=== PATIENT | female | born 1985 | race Caucasian/White ===

== ENCOUNTER 2022-11-19 12:44 | Outpatient (CLI) | payer OTHER, SELFPAY ==
[2022-11-19 23:04] LABS: Chlamydia DNA Amplified* NOT DETECTED (No Detected); GC DNA Amplified* NOT DETECTED (No Detected)
== END 2022-11-19 12:45 | disposition home or self-care (01) ==
LOC: LKVREF 12:44
PROVIDERS: PCP Family Medicine; Visit Provider Nurse Practitioner Family
DX: R30.0 Dysuria (principal)
CPT/HCPCS: 87491; 87591

== ENCOUNTER 2023-02-26 08:22 | Outpatient (CLI) | payer OTHER, SELFPAY ==
[2023-02-26 15:20] LABS: Chlamydia DNA Amplified* NOT DETECTED (No Detected); GC DNA Amplified* NOT DETECTED (No Detected)
== END 2023-02-26 08:23 | disposition home or self-care (01) ==
LOC: FRMREF 08:22
PROVIDERS: PCP Family Medicine; Visit Provider Family Medicine
DX: N92.0 Excessive and frequent menstruation with regular cycle (principal)
CPT/HCPCS: 87491; 87591

== ENCOUNTER 2023-03-20 13:25 | Outpatient (CLI) | payer OTHER, SELFPAY ==
[2023-03-21 11:52] LABS: Chlamydia DNA Amplified* NOT DETECTED (No Detected); GC DNA Amplified* NOT DETECTED (No Detected)
== END 2023-03-20 13:26 | disposition home or self-care (01) ==
LOC: LKVREF 13:27
PROVIDERS: PCP Family Medicine; Visit Provider Nurse Practitioner Family
DX: R30.0 Dysuria (principal); Z11.3 Encounter for screening for infections with a predominantly sexual mode of transmission
CPT/HCPCS: 87086; 87491; 87591

== ENCOUNTER 2023-06-14 09:01 | Outpatient (CLI) | payer OTHER, SELFPAY | END 2023-06-14 09:02 | disposition home or self-care (01) | LOC: NFLDREF 06-15 06:32 | PROVIDERS: PCP Family Medicine; Referring Provider Family Medicine; Visit Provider Family Medicine | DX: N92.1 Excessive and frequent menstruation with irregular cycle (principal); Z13.220 Encounter for screening for lipoid disorders; Z13.29 Encounter for screening for other suspected endocrine disorder; Z13.1 Encounter for screening for diabetes mellitus | CPT/HCPCS: 80061; 82947; 84443 ==

== ENCOUNTER 2023-06-25 15:43 | Outpatient (CLI) | payer OTHER, SELFPAY ==
--- NOTE | 2023-06-25 16:00 | US_ITS ---
Patient: NIGEL BEAULIEU Facility:?[facility] RIS Patient ID:?[id number] Site Patient ID:?[id number]. Site :?[id number] Study:?US-OB Pelvis TA/TV Pelvic US-06/25/2023 4:51:50 PM Ordering Physician:Regina May Final Report: INDICATION: Menorrhagia COMPARISON: 06/06/2020 TECHNIQUE: 2D ibrahim scale and color Doppler images were acquired of the pelvis using a transabdominal and transvaginal approach. FINDINGS: Sonographic images demonstrate a normal size and smooth outer contour of the uterus. Uterus measures 8.9 cm in length by 4.5 cm in AP diameter by 5.8 cm in transverse dimension. The myometrium has a normal uniform echotexture. The endometrial lining measures 8.8 mm in composite thickness. Cervical nabothian cysts measures 8 millimeters. The right ovary measures 3.8 x 1.6 x 2.5 cm in size and the left ovary measures 3.7 x 2.7 x 1.7 cm. The ovaries demonstrate normal arterial and venous blood flow on color Doppler analysis. Moderate pelvic free fluid. Hemorrhagic left ovarian cyst measures 16 x 16 x 17 millimeters. Incidental calcification within the right ovary measuring 3 millimeters. Simple right ovarian cyst measures 19 x 10 x 12 millimeters. IMPRESSION: Endometrial thickness 8.8 millimeters. No uterine fibroid. No endometrial fluid. Dictated by Landon Cote MD @ 06/26/2023 10:51:20 AM Signed by:?Landon Cote MD @06/26/2023 10:51:20 AM (Electronic Signature)
== END 2023-06-25 15:44 | disposition home or self-care (01) ==
LOC: US 15:43
PROVIDERS: PCP Family Medicine; Visit Provider Physician Assistant
DX: N92.1 Excessive and frequent menstruation with irregular cycle (principal); R93.89 Abnormal findings on diagnostic imaging of other specified body structures; N92.3 Ovulation bleeding
CPT/HCPCS: 76830; 76856

== ENCOUNTER 2023-07-10 17:15 | Outpatient (CLI) | payer OTHER, SELFPAY | END 2023-07-10 17:16 | disposition home or self-care (01) | LOC: NFLDREF 07-30 06:02 | PROVIDERS: PCP Family Medicine; Referring Provider Family Medicine; Visit Provider Physician Assistant | DX: D50.9 Iron deficiency anemia, unspecified (principal) | CPT/HCPCS: 82728 ==

== ENCOUNTER 2023-07-22 08:19 | Outpatient (RCR) | payer OTHER, SELFPAY ==
--- NOTE | 2023-07-14 13:27 | PC.NURSE ---
Diagnosis: IRON DEFICIENCY ANEMIA
--- NOTE | 2023-07-14 13:43 | URNOTE ---
?Request received for authorization for?Infed ([id number]). Prior authorization is not required per [facility] Ref#[id number].
[2023-07-22 08:29] VITALS: BP 108/72; PULSE 75; RESP 18; TEMP 36.4; O2SAT 99
[2023-07-22] MEDS: IRON DEXTRAN COMPLEX 25 MG in 0.9 % SODIUM CHLORIDE 100 ml 100 ML 402 MG IVPB (09:05)
[2023-07-22 09:55] VITALS: BP 108/72; PULSE 91; RESP 18; TEMP 36.8; O2SAT 100
[2023-07-22] MEDS: 0.9 % SODIUM CHLORIDE 250 ml IV (10:20)
[2023-07-22] MEDS: SODIUM CHLORIDE 0.9 % (FLUSH) 10 ML SYRINGE IVF (10:20)
[2023-07-22] MEDS: IRON DEXTRAN COMPLEX 975 MG in 0.9 % SODIUM CHLORIDE 250 ml 250 ML 269.5 MG IVPB (10:20)
[2023-07-22 11:34] VITALS: BP 118/73; PULSE 91; RESP 18; O2SAT 100
== END 2024-01-18 23:59 | disposition home or self-care (01) ==
LOC: CCIC 08:19
PROVIDERS: PCP Family Medicine; Referring Provider Family Medicine; Visit Provider Physician Assistant
DX: D50.9 Iron deficiency anemia, unspecified (principal)
CPT/HCPCS: 96365; 96376; J1750; J7050

== ENCOUNTER 2023-09-08 06:02 | Day surgery (SDC) | payer OTHER, SELFPAY ==
[2023-09-08] VITALS (20 sets, daily range): BP systolic 84–115; BP diastolic 46–84; PULSE 44–88; RESP 14–16; TEMP 35.9–37.8; O2SAT 96–100; BMI 25.7
[2023-09-08] MEDS: PHENAZOPYRIDINE HCL 200 MG TABLET PO (06:45)
[2023-09-08 06:46] LABS: Ur HCG Qualitative* Negative (Negative)
[2023-09-08] MEDS: LACTATED RINGERS 1000 ML 1,000 ML 100 ML IV ×2 (07:03→08:08)
[2023-09-08] MEDS: SODIUM CHLORIDE 0.9 % (FLUSH) 10 ML SYRINGE IVF ×2 (07:03→21:14)
--- NOTE | 2023-09-08 07:27 | W.PM.H&PU ---
History & Physical Update History & Physical Update H&P Reviewed and patient assessed: The following changes are noted below H&P Updates: She reports having been diagnosed with bacterial vaginosis in the last week. However, she reports less than 20% clue cells on wet prep. She was prescribed metronidazole but did not take this. It sounds as though she does not meet definitive criteria for BV given the wet prep result, but I suspect she does have increased risk of infection given this, and we discussed this risk. I will treat her with IV metronidazole pre / perioperatively, and will recommend that she complete 7 days of oral metronidaole afterwards.
[2023-09-08 07:28] LABS: Hemoglobin* 11.7 gm/dL (12.0-16.0)
[2023-09-08] MEDS: CEFAZOLIN 2 GM INJ IVP (07:30)
[2023-09-08 07:41] LABS: Creatinine* 0.7 mg/dL (0.5-1.5); Est. Creatinine Clearance* 93.17; Estimated Glomerular Filt Rate 113 ml/min
[2023-09-08] MEDS: metroNIDAZOLE 500 MG/100 ML PIGGYBACK 100 MG IVPB (07:45)
[2023-09-08] MEDS: 0.9 % SODIUM CHLORIDE 50 ml INJECTION (08:05)
[2023-09-08] MEDS: VASOPRESSIN 20 UNIT/ML INJ INJECTION (08:05)
--- NOTE | 2023-09-08 09:06 | PM.PROC ---
Procedure Note Time Seen by Provider: 09:06 Date Seen: 09/08/23 Date of procedure: 09/08/23 Will [facility] bill your pro fee for this procedure?: Yes Procedure: therapy administrative assistant op note: Preoperative diagnosis: 38-year-old with menorrhagia with secondary anemia Postoperative diagnosis: Same Procedure: Total vaginal hysterectomy, bilateral salpingectomy, cystoscopy Operative note: I was asked to assist Dr. Valdez with the patient's surgery. I aided in dissection, visualization, and obtaining hemostasis. Please see Dr. Valdez's note for complete details.
--- NOTE | 2023-09-08 09:09 | W.PM.GYNPROC ---
Procedure Note Date of procedure: 09/08/23 Will [facility] bill your pro fee for this procedure?: Yes Pre-op diagnosis: Menorrhagia Iron deficiency anemia Post-op diagnosis: Same Procedure: Total vaginal hysterectomy Bilateral salpingectomy Cystoscopy Anesthesia: MAC and spinal Complications: None Surgeon: Shanti Valdez MD Wool Dyer: Ann Washington Estimated blood loss (mL): 25 IV fluids (mL): 1,700 Urine Output (mL): 50 Pathology: specimen obtained, sent to pathology (Uterus with bilateral fallopian tubes) Condition: stable Disposition: PACU Findings: 1. Exam under anesthesia revealed mobile, slightly retroverted uterus without any palpable adnexal masses. 2. Visualized portions of bilateral ovaries were normal. Tubes were normal in appearance. Weight of uterus and tubes was 158 g. 3. Upon cystoscopy performed at end of procedure, there were bilateral ureteral jets noted and there was no injury to the bladder mucosa or bladder dome. Procedure Description: Procedure in detail: Patient was taken to the operating room with IV running. Spinal anesthesia was administered. She received cefazolin and metronidazole in preoperative prophylaxis. She was positioned in dorsal lithotomy position with her legs in Yellofin stirrups. Exam under anesthesia was performed for the above noted findings. Santana catheter was inserted. Weighted speculum was inserted. Cervix was grasped along its anterior and posterior lips with thyroid Alex clamps. The cervical vaginal junction was circumferentially infiltrated with dilute vasopressin. The cervical vaginal junction was then incised circumferentially with scalpel. The vaginal epithelium was dissected bluntly off bilateral uterosacral ligaments. Anterior colpotomy was performed sharply, and a Jack retractor was placed between the bladder and the uterus. The posterior colpotomy was performed sharply, and a long weighted speculum was placed in the cul-de-sac. Bilateral uterosacral ligaments were clamped, cut, suture ligated with 0 Vicryl, and tagged for later identification. The cardinal ligaments were serially clamped, cut, and suture ligated bilaterally with 0 Vicryl. Finally, the remnants of the broad ligament were clamped, cut, and suture-ligated, sparing the fallopian tubes. These were grasped with [place] clamps at their fimbriated edges. The LigaSure exact device was used to cauterize and transect the blood supply the tubes, and the remaining mesosalpinx was cauterized and transected with this device as well. This was carried out 1st on the patient's right, then the left side. The uterus and attached fallopian tubes was delivered through the vagina. Bilateral ovaries were normal in appearance. The angles of the vaginal cuff were closed with a stitch of 0 Vicryl, incorporating the distal most aspect of the uterosacral pedicle into the closure. The intervening vaginal cuff was closed with a series of [id number] sutures of 0 Vicryl. Hemostasis was noted. All instruments were removed from the vagina. Santana catheter was removed from the patient's bladder. Patient was administered IV sodium fluorescein to aid in visualization of ureteral jets. Cystoscopy was performed, revealing bilateral ureteral jets and no injury to the bladder. The cystoscope was removed and the Santana catheter replaced. Postoperative debrief was verbalized with OR staff, including a verification of pathology specimens to be sent as described above. Patient tolerated procedure well and was taken to recovery area in stable condition.
--- NOTE | 2023-09-08 09:24 | W.ANESCHARGE ---
Anesthesia Charges Start Date/Time Anesthesia Start Date: 09/08/23 Anesthesia Start Time: 07:18 Stop Date/Time Anesthesia Stop Date: 09/08/23 Anesthesia Stop Time: 09:12
--- NOTE | 2023-09-08 09:25 | W.ANESCHARGE ---
Anesthesia Charges Start Date/Time Anesthesia Start Date: 09/08/23 Anesthesia Start Time: 07:18 Stop Date/Time Anesthesia Stop Date: 09/08/23 Anesthesia Stop Time: 09:12
[2023-09-08] MEDS: LORazepam 2 MG/ML inj IVP (10:27)
[2023-09-08] MEDS: LACTATED RINGERS 1000 ML 1,000 ML 125 ML IV (10:28)
[2023-09-08] MEDS: KETOROLAC 30 MG/ML inj IVP ×2 (14:52→21:14)
[2023-09-08] MEDS: ACETAMINOPHEN 325 MG TABLET 650 MG PO (18:26)
--- NOTE | 2023-09-08 18:56 | PC.NURSE ---
Pt alert and oriented. Pt had no complaints of pain but some cramping. Pt has a greenfield in place. Pt arrived to floor at 945- Pt was drowsy and slept through most of the morning. Pt had some anxiety post-surgery; see EMAR for intervention. Surgeon updated. Pt up independently in room. Behavioral Health Worker received a verbal order to remove the greenfield catheter from the surgeon production expediter per Pt?s request. Removed at 1845; Pt able to void immediately after removal.?
[2023-09-08] MEDS: OXYCODONE 5 MG TABLET PO (21:13)
[2023-09-08] MEDS: metroNIDAZOLE 500 MG TABLET PO (21:13)
[2023-09-08] MEDS: TRAZODONE HCL 50 MG TABLET 100 MG PO (22:31)
[2023-09-09] MEDS: KETOROLAC 30 MG/ML inj IVP ×2 (02:36→08:45)
[2023-09-09] MEDS: SODIUM CHLORIDE 0.9 % (FLUSH) 10 ML SYRINGE IVF (02:37)
[2023-09-09 02:53] VITALS: BP 106/57; PULSE 69; RESP 16; TEMP 36.7; O2SAT 95
--- NOTE | 2023-09-09 05:27 | PC.NURSE ---
[id number] Pt slept well during night, voiding without difficulty, greenfield removed approx 1900. no N/V, tolerating PO intake, scant bleeding noted during urination, no clots, appropriate amount. pt denies being lightheaded or dizzy. pain controlled with prn and scheduled pain medications, describes pain as cramping. pt appliying heat and ice to lower abd, rotating per pt comfort.
[2023-09-09] MEDS: OXYCODONE 5 MG TABLET PO ×2 (06:35→10:22)
[2023-09-09 06:36] LABS: Creatinine* 0.6 mg/dL (0.5-1.5); Estimated Glomerular Filt Rate 117 ml/min
[2023-09-09 06:39] LABS: Hemoglobin* 10.6 gm/dL (12.0-16.0)
[2023-09-09 07:40] VITALS: BP 94/63; PULSE 62; RESP 14; TEMP 36.9; O2SAT 98
--- NOTE | 2023-09-09 07:59 | P.DS_ITS ---
DS: Providers Provider Date Seen: 09/09/23 Date of admission: 09/08/23 Primary care physician: Khurram Bernard MD Admitting Clinician: Shanti Valdez MD Attending Physician on discharge: Shanti Valdez MD Date of Discharge: 09/09/23 DS: Diagnosis Discharge Diagnosis (1) S/P vaginal hysterectomy: Status: Acute Problem details: total vaginal hysterectomy with bilateral salpingectomy and cystoscopy 09/08/23 MAIL DELIVERER-Discharge Summary Hospital Course Hospital Course Narrative: Patient is a 38 year old admitted on 09/08/2023 for total vaginal hysterectomy with bilateral salpingectomy and cystoscopy. Indication for surgery: Menorrhagia with iron deficiency anemia. Intraoperative findings were notable for uterus of normal dimensions. Normal appearance to bilateral tubes and ovaries. She had an uncomplicated surgery. Postoperative course has been uneventful. Vitals have been stable. She has remained afebrile. Today, on postoperative day 1, she reports the pain is well controlled. She has been able to ambulate Without difficulty. She is tolerating regular diet. She is passing flatus. Santana catheter has been removed, and she is voiding without difficulty. Time Spent with Patient Time attestation: Total time spent providing and/or coordinating discharge services: Time spent: Less than 30 minutes MAIL DELIVERER - Exam Physical Exam: Vital signs: Temp Pulse Resp BP Pulse Ox O2 Del Method 98.5 F 62 14 94/63 98 Room Air 09/09/23 07:40 09/09/23 07:40 09/09/23 07:40 09/09/23 07:40 09/09/23 07:40 09/09/23 07:40 Narrative: General: Pleasant, no acute distress Heart: Regular rate and rhythm, no murmur or gallop Lungs: Clear to auscultation bilaterally Abdomen: Soft, nontender, normoactive bowel sounds, no rebound / guarding / distention Lower extremities: No edema or erythema MAIL DELIVERER - DS: Data Data Completed and Pending Labs on day of discharge: Labs from last 24 hours 09/09/23 09/08/23 05:50 07:11 Hgb 10.6 L Creatinine 0.6 Estimated Creat Clear 108.70 Estimated GFR 117 Blood Type A Positive Antibody Screen NEGATIVE Procedures Procedures: Procedures Operation Date: 09/08/23 07:15 Actual Procedure Side Surgeon p M/S-Total Vaginal Hysterectomy, Bilateral Salpingectomy, Cystoscopy Not Applicable Shanti Valdez MD Complications: none Discharge Plan Discharge Disposition: Home w/ Parent or Adult Discharging Surgeon: Shanti Valdez Follow-Up Appointment: Dr. Valdez, [facility], September 23 @ 1:15 pm Prescriptions: New acetaminophen 325 mg Tablet 650 mg PO Q4H PRN (Reason: minor pain) Qty: 0 0RF metronidazole 500 mg Tablet 500 mg PO BID 6 Days Qty: 12 0RF docusate sodium 100 mg Capsule 100 mg PO BID PRN (Reason: Constipation) Qty: 0 0RF ibuprofen 600 mg Tablet 600 mg PO Q6H Qty: 0 0RF oxycodone 5 mg Tablet 5 mg PO Q4H PRN (Reason: Moderate Pain) Qty: 20 0RF Continued tretinoin 0.05 % cream 1 applic topical HS PRN trazodone 100 mg tablet 100 mg PO QHS PRN (Reason: sleep) Qty: 90 3RF dextroamphetamine-amphetamine 10 mg tablet 1 tab PO BID PRN venlafaxine 75 mg capsule,extended release 24hr 75 mg PO DAILY metronidazole 0.75 % (37.5mg/5 gram) gel 1 appful vaginal 2XW Rx Instructions: To start after completion of oral metronidazole. 1 appful vaginally twice weekly for 4 months Activity Level: Activity as Tolerated Discharge Diet: Regular Patient Instructions: Vaginal Hysterectomy (DC) Follow-up: Khurram Bernard MD [Primary Care Provider] - Shanti Valdez MD [Staff Physician] - 09/24/23 1:15 pm Discharge Orders: Discharge Order (Routine); Ordered 09/09/23 Ordered By: Shanti Valdez
[2023-09-09] MEDS: metroNIDAZOLE 500 MG TABLET PO (08:45)
[2023-09-09 10:00] VITALS: BP 105/69; PULSE 66; RESP 16; TEMP 37.3; O2SAT 100
--- NOTE | 2023-09-09 12:07 | PC.NURSE ---
Pt alert and oriented. Pt had complaints of pain ranging 4-6; see EMAR for intervention. Pt up independently in room. Pt has scan bloody drainage from vagina. Pt's IV removed catheter intact.
== END 2023-09-09 11:01 | disposition home or self-care (01) ==
LOC: OR 06:05 → MEDSURG 06:19
PROVIDERS: PCP Family Medicine; Visit Provider Obstetrics & Gynecology
PROC: (CPT 58262; principal; 2023-09-08 07:15)
DX: N92.0 Excessive and frequent menstruation with regular cycle (principal); D50.0 Iron deficiency anemia secondary to blood loss (chronic); N76.0 Acute vaginitis
CPT/HCPCS: 58262; 00944; 36415; 81025; 82565; 85018; 86850; 86900; 86901; 88309; A9270; J0690; J1100; J1630; J1836; J1885; J2060; J2250; J2274; J2405; J2704; J3010; J3490; J7120

== ENCOUNTER 2023-10-22 09:15 | Outpatient (CLI) | payer OTHER, SELFPAY | END 2023-10-22 09:16 | disposition home or self-care (01) | LOC: NFLDREF 09:17 | PROVIDERS: PCP Family Medicine; Visit Provider Obstetrics & Gynecology | DX: A60.00 Herpesviral infection of urogenital system, unspecified (principal) | CPT/HCPCS: 86694; 86695; 86696 ==

== ENCOUNTER 2024-06-20 13:40 | Outpatient (CLI) | payer OTHER, SELFPAY | END 2024-06-20 13:41 | disposition home or self-care (01) | PROVIDERS: PCP Physician Assistant Medical; Visit Provider Physician Assistant Medical | DX: R00.2 Palpitations (principal); R23.2 Flushing | CPT/HCPCS: 80053; 80061; 83001; 84443 ==

== ENCOUNTER 2024-08-02 12:42 | Outpatient (CLI) | payer OTHER, SELFPAY ==
--- NOTE | 2024-08-02 13:00 | CRLHL7_ITS ---
For Patients: As a result of the Century Cures Act, medical imaging exams and procedure reports are released immediately into your electronic medical record. You may view this report before your referring provider. If you have questions, please contact your health care provider. INDICATION: Bilateral Screening Mammogram w/Implants, asymptomatic 39Y/F COMPARISON: Baseline TECHNIQUE: Digital mammogram in CC and MLO projections including computer-aided detection (CAD) and tomosynthesis. BREAST COMPOSITION: The breasts are extremely dense, which lowers the sensitivity of mammography. FINDINGS: No suspicious findings. ASSESSMENT: BI-RADS 2 Benign RECOMMENDATION: Annual screening mammogram. A lay language report of this examination will be provided to the patient. Dictated by: Landon Cote MD @ 08/04/2024 11:22:54 (Electronically Signed)
== END 2024-08-02 12:43 | disposition home or self-care (01) ==
LOC: MAMMO 12:43
PROVIDERS: PCP Physician Assistant Medical; Visit Provider Physician Assistant Medical
DX: Z12.31 Encounter for screening mammogram for malignant neoplasm of breast (principal); R92.343 Mammographic extreme density, bilateral breasts; Z98.82 Breast implant status
CPT/HCPCS: 77063; 77067

== ENCOUNTER 2024-10-08 09:08 | Outpatient (CLI) | payer OTHER, SELFPAY | END 2024-10-08 09:09 | disposition home or self-care (01) | LOC: NFLDREF 10-11 14:32 | PROVIDERS: PCP Physician Assistant Medical; Referring Provider Physician Assistant Medical; Visit Provider Family Medicine | DX: N39.0 Urinary tract infection, site not specified (principal); B96.20 Unspecified Escherichia coli [E. coli] as the cause of diseases classified elsewhere | CPT/HCPCS: 87086 ==